=== PATIENT | female | born 1990 | race Caucasian/White ===

== ENCOUNTER 2024-12-10 11:14 | Emergency (ER) | payer OTHER, SELFPAY ==
[2024-12-10 11:22] VITALS: BP 125/65; PULSE 123; RESP 18; TEMP 36.7; O2SAT 100; BMI 21.2
--- NOTE | 2024-12-10 11:28 | XRR_ITS ---
PROCEDURE INFORMATION: Exam: XR Chest Exam date and time: 12/10/2024 11:36 AM Age: 34 years old Clinical indication: Pain; Angina pectoris; Additional info: Chest pain TECHNIQUE: Imaging protocol: Radiologic exam of the chest. Views: 1 view. COMPARISON: No relevant prior studies available. FINDINGS: Lungs: Lungs are clear. Pleural spaces: There is no pleural effusion or pneumothorax. Heart/Mediastinum: Cardiomediastinal contours are unremarkable. Bones/joints: There is mild convex right upper thoracic scoliosis centered at T6. No acute osseous findings. XR/XR chest 1V portable [id number] IMPRESSION: No acute findings.
--- NOTE | 2024-12-10 11:28 | ECG_ITS ---
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: : 1990 Requested By: Ashley Dutta Order Number: [id number] Reading MD: ESDRAS METZGER Measurements Intervals [place] Rate: 125 P: 71 OK: 123 QRS: 74 QRSD: 88 T: 26 QT: 272 QTc: 392 Interpretive Statements SINUS TACHYCARDIA LOW QRS VOLTAGE IN PRECORDIAL LEADS [QRS DEFLECTION < 1.0 mV IN CHEST LEADS] NONSPECIFIC ST & T-WAVE ABNORMALITY ABNORMAL RHYTHM ECG No previous ECG available for comparison Electronically Signed On 12-10-2024 20:58:08 CDT by ESDRAS METZGER [id number]
[2024-12-10 12:09] LABS: Basophils % 0.4 %; Eosinophils # 0.1 10^3/uL (0.0-0.8); Eosinophils % 0.7 %; Hematocrit 41.2 % (36-47); Lymphocytes # 2.7 10^3/uL (0.8-4.8); Lymphocytes % 25.8 %; Mean Corpuscular Hemoglobin 30.7 pg (27-33); Mean Corpuscular Volume 90.4 fl (85-98); Mean Platelet Volume 9.5 fL (7.4-10.4); Monocytes # 0.6 10^3/uL (0.2-0.9); Monocytes % 5.4 %; Neutrophils # 6.97 10^3/uL (1.8-7.7); Neutrophils % 67.4 %; Nucleated Red Blood Cells % 0 %; Platelet Count 319 10^3/cmm (157-399); Red Blood Count 4.56 10^6/uL (3.85-5.65); White Blood Count 10.33 10^3/uL (3.29-11.43)
[2024-12-10 12:21] LABS: HCG, Serum Qual Negative (Negative)
--- NOTE | 2024-12-10 12:26 | PC.NURSE ---
no cardiac leads available, this nurse called [place] [facility] to gather some.
[2024-12-10 12:27] VITALS: BP 121/91; PULSE 109; RESP 18; O2SAT 100
[2024-12-10 12:28] LABS: Troponin(5th) Baseline < 6 ng/L (0-10)
[2024-12-10 12:31] VITALS: BP 125/87; PULSE 107; RESP 16; O2SAT 100
[2024-12-10 12:36] LABS: Alanine Aminotransferase 12 U/L (0-33); Albumin Level 4.5 g/dL (3.5-5.2); Alkaline Phosphatase 71 U/L (35-105); Anion Gap 15.5 (5-19); Aspartate Amino Transferase 16 U/L (0-32); Blood Urea Nitrogen 11 mg/dL (6-20); Calcium 9.2 mg/dL (8.5-10.5); Carbon Dioxide 22 mmol/L (22-29); Chloride 102 mmol/L (98-107); Creatinine Clr Calc Pharmacy 110.9823; Globulin 2.3 g/dL (1.3-4.6); Glomerular Filtration Rate 114.4 mL/min (90-130); Glucose 136 mg/dL (65-115); Osmolality Calculated 283 mOsm/kg (285-295); Potassium 3.5 mmol/L (3.5-5.1); Sodium 136 mmol/L (136-145); Thyroid Stimulating Hormone 1.56 uIU/mL (0.27-4.20); Total Bilirubin 0.3 mg/dL (0.15-1.2); Total Protein 6.8 g/dL (6.6-8.7)
--- NOTE | 2024-12-10 12:57 | ED_ITS ---
HPI - Chest Pain 2 General: Chief Complaint: Chest Pain Stated Complaint: chest pain Time Seen by Provider: 12/10/24 11:30 Source: patient Mode of arrival: ambulatory Limitations: no limitations History of Present Illness: Patient is a 34-year-old female presents to ED today with complaint of intermittent left-sided chest pains that have been present over the past 9 days or so. She states pain seems to be located throughout the left side of her chest and into her shoulder. She does not endorse any alleviating or worsening factors to her discomfort. She has tried treating with [id number] gas medication thinking symptoms could be secondary to bloating but this has not made much of a difference. States eating does not seem to affect her discomfort. She is not having any shortness of breath, pain with inhalation, cough. Symptoms are not brought on by exertion. 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 Patient has no risk factors for cardiac disease. She states she is otherwise healthy. She does mention a strong family history of breast cancer stating her grandmother and her grandmother sister both from metastatic breast cancer in her 30s. Patient states she did have a mammogram at some point in her 20s but has not had any annual surveillance since then. complaint: chest pain Onset (ago): week(s) (1.5 weeks) Timing of current episode: episodic Prior episodes: No Pain location: substernal and left chest Pain radiation: back and left shoulder Severity: moderate Pain scale (0-10): 6 Quality: aching Relieving factors: nothing Exacerbating factors: nothing Associated symptoms: Deny abdominal pain, dyspnea, fever(s), nausea, palpitations, syncope or vomiting Treatment prior to arrival: none Risk Factors: Coronary artery disease risk factors: none Thoracic aortic dissection risk factors: none Related Data Home Medications ?Medication ?Instructions ?Recorded ?Confirmed No Known Home Medications 12/10/2411/14 Allergies Allergy/AdvReac Type Severity Reaction Status Date / Time No Known Allergies Allergy Verified 12/10/24 11:28 Review of Systems 2 Const: Denies: fever(s) or chills Eyes: Denies: change in vision or blurry vision Card: Reports: chest pain; Denies: palpitations, irregular heart rhythm, edema, swelling of feet/ankles, lightheadedness, syncope, pre-syncope, dyspnea on exertion, orthopnea, leg pain with exertion or acrocyanosis Resp: Denies: dyspnea, productive cough or pain on inspiration GI: Reports: bloating; Denies: abdominal pain, nausea, vomiting, heartburn, diarrhea, GI cramping, hematochezia or melena : Denies: flank pain or dysuria Musc: Denies: neck pain, back pain, extremity pain, extremity swelling, joint pain or joint swelling Skin/Breast: Denies: rash Neuro: Denies: headache(s), numbness in extremities, weakness in extremities, sensory changes or dizziness Physical Exam 2 Const: COMMON NORMALS: no acute distress, average body habitus, patient oriented x3, no limitations, healthy appearing, alert and well nourished G ENERAL APPEARANCE: cooperative and anxious ORIENTATION/CONSCIOUSNESS: Yes awake, Yes oriented to person, Yes oriented to place and Yes oriented to time Chest: COMMONS NORMALS: normal inspection of the chest and normal palpation of entire chest wall Resp: COMMON NORMALS: normal respiratory effort and clear to auscultation bilaterally AUSCULTATION: clear to auscultation bilaterally Cardio: COMMON NORMALS: regular rate and regular rhythm RATE: regular rate RHYTHM: regular rhythm GI: COMMON NORMALS: Normal to inspection, nondistended, normoactive bowel sounds present, Soft to palpation, non-tender and no masses PALPATION: Yes Soft to palpation Extremity: COMMON NORMALS: no clubbing, cyanosis or edema, no calf tenderness and no pedal edema GENERAL: Yes normal exam except as noted Neuro: COMMON NORMALS: patient oriented x3, moves all extremities, no focal motor deficits, no sensory deficits noted and gait normal S ENSORIUM/ORIENTATION: Yes alert, Yes oriented to person, Yes oriented to place and Yes oriented to time Course 2 Vital Signs: Vital signs: Vital Signs Temperature 98.1 F 12/10/24 11:22 Pulse Rate 112 H 12/10/24 13:52 Respiratory Rate 16 12/10/24 12:31 Blood Pressure 117/74 12/10/24 13:52 Pulse Oximetry 98 12/10/24 13:52 Oxygen Delivery Me thod Room Air 12/10/24 13:00 MDM - Chest Pain Medical Decision Making Patient clinically appears in no acute distress. Vital signs are stable. She is tachycardic at times. Blood work including CBC, CMP, baseline troponin, TSH were all unremarkable. Her EKG showing normal sinus rhythm with a rate of 98 with no concerns for ischemia. No risk factors for PE. At this time patient is cleared for discharge from an emergency standpoint. She does states she will follow-up with Paloma Zheng PA-C for further evaluation of symptoms. I suspect there may be an anxiety component. Return precautions discussed. Medical Records I reviewed the patient's medical records. Lab Data I reviewed the patient's lab results. 12/10/24 12:01 12/10/24 12:01 Radiology Impressions Chest X-Ray 12/10/24 11: IMPRESSION: No acute findings. Laboratory Results WBC 10.33 10^3/uL (3.29-11.43) 12/10/24 12:01 RBC 4.56 10^6/uL (3.85-5.65) 12/10/24 12:01 Hgb 14.00 g/dL (11.27-16.99) 12/10/24 12:01 Hct 41.2 % (36-47) 12/10/24 12:01 MCV 90.4 fl (85-98) 12/10/24 12:01 MCH 30.7 pg (27-33) 12/10/24 12:01 MCHC 34.0 g/dL (30-55) 12/10/24 12:01 RDW 13.0 % (12.1-15.1) 12/10/24 12:01 Plt Count 319 10^3/cmm (157-399) 12/10/24 12:01 MPV 9.5 fL (7.4-10.4) 12/10/24 12:01 Neut % (Auto) 67.4 % 12/10/24 12:01 Lymph % (Auto) 25.8 % 12/10/24 12:01 [place] % (Auto) 5.4 % 12/10/24 12:01 Eos % (Auto) 0.7 % 12/10/24 12:01 Baso % (Auto) 0.4 % 12/10/24 12:01 Neut # (Auto) 6.97 10^3/uL (1.8-7.7) 12/10/24 12:01 Lymph # (Auto) 2.7 10^3/uL (0.8-4.8) 12/10/24 12:01 [place] # (Auto) 0.6 10^3/uL (0.2-0.9) 12/10/24 12:01 Eos # (Auto) 0.1 10^3/uL (0.0-0.8) 12/10/24 12:01 Baso # (Auto) 0.0 10^3/uL (0.0-0.1) 12/10/24 12:01 Nucleated RBC % (auto) 0 % 12/10/24 12:01 Nucleated RBCs # 0.0 /100WBC 12/10/24 12:01 Sodium 136 mmol/L (136-145) 12/10/24 12:01 Potassium 3.5 mmol/L (3.5-5.1) 12/10/24 12:01 Chloride 102 mmol/L (98-107) 12/10/24 12:01 Carbon Dioxide 22 mmol/L (22-29) 12/10/24 12:01 Anion Gap 15.5 (5-19) 12/10/24 12:01 BUN 11 mg/dL (6-20) 12/10/24 12:01 Creatinine 0.6 mg/dL (0.5-0.9) 12/10/24 12:01 GFR Calculation 114.4 mL/min (90-130) 12/10/24 12:01 Glucose 136 mg/dL (65-115) H 12/10/24 12:01 Calculated Osmolality 283 mOsm/kg (285-295) L 12/10/24 12:01 Calcium 9.2 mg/dL (8.5-10.5) 12/10/24 12:01 Total Bilirubin 0.3 mg/dL (0.15-1.2) 12/10/24 12:01 AST 16 U/L (0-32) 12/10/24 12:01 ALT 12 U/L (0-33) 12/10/24 12:01 Alkaline Phosphatase 71 U/L (35-105) 12/10/24 12:01 Troponin T Baseline < 6 ng/L (0-10) 12/10/24 12:01 Total Protein 6.8 g/dL (6.6-8.7) 12/10/24 12:01 Albumin 4.5 g/dL (3.5-5.2) 12/10/24 12:01 Globulin 2.3 g/dL (1.3-4.6) 12/10/24 12:01 TSH 1.56 uIU/mL (0.27-4.20) 12/10/24 12:01 HCG, Qual Negative (Negative) 12/10/24 12:01 All radiology interpretation(s) finalized by discharge Discharge Plan Discharge Patient Disposition: Home Clinical Impression: Non-cardiac chest pain Condition: Stable Prescriptions: No Action No Known Home Medications Discharge Orders: Discharge ED (Routine); Ordered 12/10/24 Ordered By: Ashley Dutta Patient Instructions: Noncardiac Chest Pain (ED) Activity Restrictions/Additional Instructions: As we discussed, your emergency department workup here was overall unremarkable. You have indicated that you would like to follow-up with Paloma Zheng PA-C for further evaluation of symptoms. We also discussed getting back to doing annual mammograms given your family history of breast cancer. Print Language: Faroese Coding Level of Care Code ED Java Support Engineer for Franko Suárez
[2024-12-10 13:00] VITALS: BP 125/87; PULSE 118; O2SAT 100
--- NOTE | 2024-12-10 13:28 | ECG_ITS ---
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
[2024-12-10 13:52] VITALS: BP 117/74; PULSE 112; O2SAT 98
== END 2024-12-10 13:53 | disposition home or self-care (01) ==
PROVIDERS: Emergency Provider Physician Assistant
DX: R07.89 Other chest pain (principal)
CPT/HCPCS: 36415; 71045; 80053; 84443; 84484; 84703; 85025; 93005; 99285